=== PATIENT | female | born 1955 | race African-American/Black ===

== ENCOUNTER 2017-05-13 12:01 | Outpatient (CLI) | payer OTHER ==
--- NOTE | 2017-05-13 13:31 | CT ---
CT CHEST WITHOUT CONTRAST: INDICATIONS: Parenchymal density in the right middle lobe has been described on chest film. COMPARISON: Correlation made to chest films of 05/02/2017, 04/16/2017, and 11/09/2011. TECHNIQUE: Multiple axial tomograms obtained through the chest without IV enhancement. FINDINGS: CT scan does confirm a confluent parenchymal opacity in the right middle lobe. This has a triangle s hape on coronal images, with the more inferior margin abutting the fissure. It measures 3.3 cm in [facility], in the coronal plane, by 2 cm craniocaudal. Air bronchograms traverse this opacity. Peribronch ial thickening extends from the michell and surrounds the right middle lobe bronchus as it branches from the bronchus intermedius. There is a focal nodular density in the right upper lobe, measuring 8 mm, on the coronal plane. This small density also has a bronchus within its mid portion. There is a focal tiny nodular area in the left apex, medially, which has somewhat of a linear pattern , suggesting chronic change. There is a poorly circumscribed area of density in the superior segment, right lower lobe, adjacent t o the fissure, which has a nodular appearance on coronal imaging, measuring in the 6 to 7 mm range. There is another sole area of indistinct nodularity, adjacent to the fissure, in the superior right l ower lobe. There are scattered small blebs/early bullae bilaterally. Mild ground glass opacity in the left lung base, medially. The mediastinum shows nonspecific lymph nodes. There is a carinal lymph node measuring 1.8 cm. IMPRESSION: 1. A triangular-shaped area of parenchymal opacity in the right middle lobe with the inferior margin along the fissure. There are internal air bronchograms. This extends from the right infrahilar reg ion with peribronchial thickening, as described above. Inflammatory process is a consideration. Kevin plasm cannot be excluded radiographically on this single study; however, evidence of this density per sisting back in 2011 would indicate a benign parenchymal process, possibly scarring from a prior infl ammatory etiology. 2. There are other nodular areas in the right lung, as described above. Recommend follow-up noncontrast CT chest in three to four months, to confirm stability, since these d ensities have never been evaluated by CT. POS: [facility]
== END 2017-05-13 12:02 | disposition home or self-care (01) ==
LOC: CT 12:01
PROVIDERS: ATTEND Family Medicine
DX: R91.8 Other nonspecific abnormal finding of lung field (principal); J98.09 Other diseases of bronchus, not elsewhere classified; J98.4 Other disorders of lung
CPT/HCPCS: 71250

== ENCOUNTER 2017-09-29 10:41 | Outpatient (CLI) | payer OTHER | END 2017-09-29 10:42 | disposition home or self-care (01) | LOC: BICMAMMO 10:41 | PROVIDERS: ATTEND Family Medicine | DX: Z12.31 Encounter for screening mammogram for malignant neoplasm of breast (principal); R91.8 Other nonspecific abnormal finding of lung field | CPT/HCPCS: 71250; 77067 ==

== ENCOUNTER 2018-11-30 13:53 | Outpatient (CLI) | payer OTHER ==
--- NOTE | 2018-11-30 14:39 | BD ---
EXAM: DEXA bone density examination HISTORY: 63-year-old postmenopausal female for screening COMPARISON: 05/11/2014 FINDINGS: L1--bone mineral density 0.952 g/sq cm; T score -0.3 L2--bone mineral density 0.988 g/sq cm; T score -0.4 L3--bone mineral density 1.014 g/sq cm; T score -0.6 L4--bone mineral density 1.119 g/sq cm; T score 0.5 Total L1-L4--bone mineral density 1.021 g/sq cm; T score -0.2 Left femoral neck--bone mineral density0.745; T score -0.9 Total proximal left femur--bone mineral density 0.921; T score -0.2 IMPRESSION: Normal bone density
--- NOTE | 2018-11-30 14:51 | MMO ---
Bilateral MAMMO Bilat Screen [facility]. CLINICAL HISTORY: Patient is 63 years old and is seen for screening. The patient has no family history of breast cancer. The patient has no personal history of cancer. VIEWS: The views performed were: bilateral craniocaudal and bilateral mediolateral oblique. FILMS COMPARED: The present examination has been compared to a prior imaging study performed at [facility] on 04/20/2010. This study has been interpreted with the assistance of computer-aided detection. MAMMOGRAM FINDINGS: There are scattered fibroglandular densities. There are stable benign appearing calcifications seen in both breasts. There are no suspicious masses, suspicious calcifications, or new areas of architectural distortion. IMPRESSION: THERE IS NO MAMMOGRAPHIC EVIDENCE OF MALIGNANCY. A ROUTINE FOLLOW-UP MAMMOGRAM IN 1 YEAR IS RECOMMENDED. ACR BI-RADS Category 2 - Benign finding MAMMOGRAPHY NOTE: 1. A negative mammogram report should not delay a biopsy if a dominant of clinically suspicious mass is present. 2. Approximately 10% to 15% of breast cancers are not detected by mammography. 3. Adenosis and dense breasts may obscure an underlying neoplasm. Reported by: MICHAEL HOLLOWAY MD Electonically Signed: [id number]
== END 2018-11-30 13:54 | disposition home or self-care (01) ==
LOC: BICMAMMO 13:53
PROVIDERS: ATTEND Family Medicine
DX: Z12.31 Encounter for screening mammogram for malignant neoplasm of breast (principal); Z13.820 Encounter for screening for osteoporosis; Z78.0 Asymptomatic menopausal state
CPT/HCPCS: 77067; 77080

== ENCOUNTER 2021-11-21 08:45 | Outpatient (CLI) | payer OTHER | END 2021-11-21 08:46 | disposition home or self-care (01) | LOC: BICMAMMO 08:45 | PROVIDERS: ATTEND Family Medicine | DX: Z12.31 Encounter for screening mammogram for malignant neoplasm of breast (principal) | CPT/HCPCS: 77067 ==

== ENCOUNTER 2022-03-22 10:22 | Outpatient (CLI) | payer OTHER ==
[2022-03-22 11:58] LABS: #Eosinphils 0.1 10x3/uL (0.0-0.5); #Monocytes 0.4 10x3/uL (0.0-1.1); #Neutrophils 1.4 10x3/uL (1.5-8.4); %Basophils 0.8 % (0.0-2.0); %Eosinophils 4.5 % (0.0-6.0); %Lymphocytes 27.5 % (18.0-47.0); %Neutrophils 52.8 % (40.0-75.0); Hemoglobin 12.4 g/dL (12.0-15.5); Mean Corpuscular HGB CONC 33.4 g/dL (32.0-36.0); Mean Corpuscular Volume 83.7 fl (81.6-98.3); Mean Platelet Volume 11.2 fl (7.4-10.4); Platelet Count 157 10x3/uL (150-450); RBC Distribution Width 13.2 % (11.5-14.5); Red Blood Cell (RBC) Count 4.43 10x6/uL (3.90-5.03); White Blood Cell (WBC) Count 2.7 10x3/uL (3.5-10.5)
== END 2022-03-22 10:23 | disposition home or self-care (01) ==
LOC: LABBT 10:22
PROVIDERS: ATTEND Orthopaedic Surgery Hand Surgery
DX: Z01.812 Encounter for preprocedural laboratory examination (principal); M19.131 Post-traumatic osteoarthritis, right wrist
CPT/HCPCS: 85025

== ENCOUNTER 2022-03-26 07:01 | Day surgery (SDC) | payer OTHER ==
[2022-03-25 12:54] VITALS: BMI 35.6
[2022-03-26] MEDS ORDERED: Fentanyl 100 MCG/2 ML VIAL ONE (07:30)
[2022-03-26] MEDS ORDERED: Lidocaine 1% (PF) 30 ML VIAL ONE (07:30)
[2022-03-26] MEDS ORDERED: Midazolam HCl 2 mg/2 ml Vial ONE (07:30)
[2022-03-26] MEDS ORDERED: Bacitracin Zinc Ointment 30 gm TUBE ONE (07:35)
[2022-03-26] MEDS ORDERED: Ketorolac Tromethamine 30 MG/ML VIAL ONE (07:48)
[2022-03-26] MEDS ORDERED: Ondansetron PF 4 MG/2 ML Vial ONE (07:48)
[2022-03-26] MEDS ORDERED: Dexamethasone 20 MG/5 ML VIAL ONE (07:48)
[2022-03-26] MEDS ORDERED: Lidocaine 1% PF 5 ML VIAL ONE (07:48)
[2022-03-26] MEDS ORDERED: PROPOFOL 200 MG/20 ML VIAL ONE (07:48)
[2022-03-26] MEDS ORDERED: Bupivacaine PF 0.5% 30 ML VIAL ONE (07:52)
[2022-03-26] MEDS ORDERED: CEFAZOLIN 2 GM VIAL ONE (09:00)
[2022-03-26] MEDS ORDERED: Sodium Chloride 0.9% 100 ML ONE (09:01)
== END 2022-03-26 14:57 | disposition home or self-care (01) ==
LOC: SDC 07:01
PROVIDERS: ATTEND Orthopaedic Surgery Hand Surgery
PROC: 0RGN04Z Fusion of Right Wrist Joint with Internal Fixation Device, Open Approach (ICD-10-PCS; principal; 2022-03-26)
PROC: 0RGN07Z Fusion of Right Wrist Joint with Autologous Tissue Substitute, Open Approach (ICD-10-PCS; principal; 2022-03-26)
PROC: 0RGN0KZ Fusion of Right Wrist Joint with Nonautologous Tissue Substitute, Open Approach (ICD-10-PCS; principal; 2022-03-26)
DX: M19.131 Post-traumatic osteoarthritis, right wrist (principal); I10 Essential (primary) hypertension; D64.9 Anemia, unspecified; E66.9 Obesity, unspecified; Z68.35 Body mass index [BMI] 35.0-35.9, adult; Z86.16 Personal history of COVID-19; Z79.899 Other long term (current) drug therapy
CPT/HCPCS: C1713; J1100; J1885; J2001; J2250; J2405; J2704; J3010; J3490; S0020

== ENCOUNTER 2025-02-02 08:58 | Outpatient (CLI) | payer OTHER | END 2025-02-02 08:59 | disposition home or self-care (01) | LOC: BICMAMMO 08:58 | PROVIDERS: ATTEND Family Medicine | DX: Z12.31 Encounter for screening mammogram for malignant neoplasm of breast (principal) | CPT/HCPCS: 77063; 77067 ==